=== PATIENT | male | born 1940 | race Caucasian/White ===

== ENCOUNTER 2017-01-27 19:27 | Emergency (ER) | payer MEDICARE, OTHER ==
[2017-01-27 19:43] VITALS: BP 165/68
[2017-01-27] MEDS ORDERED: Acetaminophen/oxyCODONE 325-5 MG Tab PO ONE (20:47)
--- NOTE | 2017-01-30 11:46 | ER ---
DATE SEEN: 01/27/2017 TIME SEEN: The patient was seen at 1950 hours. HISTORY OF PRESENT ILLNESS: The patient recently had surgery by Dr. Pete Antonio, a left total knee replacement. He comes in this evening with a 5- day postoperative tenderness, swelling, and increased warmth and fever of 100.6 and 10/10 pain in his left knee, total knee arthroplasty. Now, the pain is 7/10 to 8/10 in intensity. The pain is mildly uncomfortable. His is a nurse, who is very concerned about his status. PAST MEDICAL HISTORY: Significant for atrial fibrillation, now is sinus rhythm. Two CVAs, is on anticoagulants 7.5 mg, Saturday, Saturday, Saturday, Saturday and 10 mg yesterday 01/26/2017. Diabetes with peripheral neuropathy, early satiety, and retinal vascular changes in the eyes. He is an old smoker. Cholelithiasis, previous inguinal herniorrhaphy bilateral, previous cataract extraction, aortic murmur. 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 Currently on Lovenox, per his , 80 mg b.i.d. (that seems quite high), perhaps that is inappropriate. Blood pressure has been relatively stable. He has been on Coumadin since 1999. He was diagnosed with atrial fibrillation in 2014. He has had two strokes and it is thought perhaps he is still continuing the Coumadin because of these strokes. MEDICATIONS: 1. Warfarin. 2. Pepcid 40 mg daily. 3. Calcium carbonate. 4. Alphagan 0.1% drops one each b.i.d. 5. Wizrnczswl-Lauedbv-G. 6. Losartan potassium. 7. Efudex 5% cream. 8. Finasteride 5 mg daily. 9. Simvastatin 10 mg at bedtime. 10.Metformin 500 mg daily. 11.Amlodipine 5 mg daily. ALLERGIES: None. REVIEW OF SYSTEMS: The patient denies headache, neck stiffness, shortness of breath, cough, chest pain, irregular heartbeat, abdominal discomfort, nausea, vomiting, or diarrhea. He is not currently taking antibiotics. He denies paresthesias or numbness in the lower extremity, but notes he has moderate swelling in his left total knee and it is markedly increased compared to what it was yesterday. It is associated with marked new-onset redness entire left knee and increased warmth. PHYSICAL EXAMINATION: VITAL SIGNS: Blood pressure 165/68, heart rate 76, respirations 18, oxygen saturation 94% on room air, temperature is 36.7 degrees centigrade, normal. GENERAL: Alert, pleasant man, decreased hearing. His speaks a great deal for him because he has decreased hearing. She is very good - articulate as a nurse and is very knowledgeable. HEENT: PERRLA intact. Pharynx without abnormality. NECK: Supple without bruits in the neck. LUNGS: Clear to auscultation without rales, rhonchi, or wheezes. HEART: S1, S2. No murmur. No irregular rate and rhythm. ABDOMEN: Soft. No guarding. No abdominal discomfort. EXTREMITIES: Left lower extremity marked redness noted, increased warmth, marked swelling noted. His incision is clean. No linear angiitis. Moderate tenderness below the knee and above the knee. ASSESSMENT: 1. Rule out cellulitis infection. 2. I discussed the patient's status with the orthopedist classroom monitor, Dr. Keaton Antonio' colleague, and also the hospitalist, Dr. Fontanez. The patient will be transferred to [facility] by car with his for further evaluation and potential treatment of infection. At this point, there is low probability that he will require joint washout. /[id number] MEJIA/CHERRIE
== END 2017-01-27 20:45 | disposition home or self-care (01) ==
LOC: FB.ED 19:27
DX: Z47.1 Aftercare following joint replacement surgery (principal); E11.40 Type 2 diabetes mellitus with diabetic neuropathy, unspecified; I48.91 Unspecified atrial fibrillation; Z79.899 Other long term (current) drug therapy; Z86.73 Personal history of transient ischemic attack (TIA), and cerebral infarction without residual deficits
CPT/HCPCS: 99284; A9270; 99283

== ENCOUNTER 2021-05-19 16:38 | Emergency (ER) | payer MEDICARE, OTHER ==
--- NOTE | 2021-05-19 17:55 | EDM.PDOC ---
ED HPI GENERAL MEDICAL PROBLEM - General Time Seen by Provider: 05/19/21 17:20 Source of Information: Reports: Patient, Family - History of Present Illness INITIAL COMMENTS - FREE TEXT/NARRATIVE: c/o cough and fever and weak x 2d has dementia, lives with his who is his sole caregiver, she is with him driving his old tractor 2 wk ago to move snow, hit his right lower ribs on a gear handle and has pain "if you touch the right spot" cough with small amount of yellow sputum per has had COVID vax x 2, not had COVID denies pain now except for R rib he is weaker than usual, got out his walker for him, has not fallen did pass 3 kidney stones 2 days ago, had dx kidney stones going back to 2012, no dysuria, no abd pain, no n/v - Related Data Allergies Allergy/AdvReac Type Severity Reaction Status Date / Time No Known Allergies Allergy Verified 01/27/17 19:33 Home Meds: Home Meds Acetaminophen [Non-Aspirin Extra Strength] 1,000 mg PO Q6HR PRN 07/25/15 [History] Calcium Carbonate [Tums] 1,500 mg PO DAILY PRN 07/25/15 [History] Famotidine [Pepcid] 40 mg PO DAILY 07/25/15 [History] Finasteride [Proscar] 5 mg PO DAILY 07/25/15 [History] Flex Joint 1 oz PO DAILY 07/25/15 [History] Losartan Potassium [Cozaar] 100 mg PO DAILY 07/25/15 [History] Sennosides/Docusate Sodium [Senokot-S Tablet] 1 each PO BID 07/25/15 [History] Simvastatin [Zocor] 10 mg PO BEDTIME 07/25/15 [History] Warfarin [Coumadin] 5 mg PO TUTHSA 07/25/15 [History] amLODIPine [Norvasc] 5 mg PO DAILY 07/25/15 [History] fluorouraciL [Efudex 5% Cream] 40 gm TOP ASDIRECTED 07/25/15 [History] metFORMIN [Glucophage XR] 500 mg PO DAILY 07/25/15 [History] Brimonidine [Alphagan P 0.1% Ophth Soln] 1 drop EYEBOTH BID 07/26/15 [History] Warfarin Sodium [Coumadin] 7.5 mg PO SUMOWEFR 01/27/17 [History] Past Medical History HEENT History: Reports: Cataract, Glaucoma, Hard of Hearing, Impaired Vision, Sinusitis Cardiovascular History: Reports: Blood Clots/VTE/DVT, High Cholesterol, Hypertension, [place], SOB on Exertion, Syncope Other Cardiovascular History: STATES HEART VALVE PROBLEMS, ET VENTRICULAR DAMAGE. Respiratory History: Reports: Interstitial Lung Disease Other Respiratory History: STATES ASBESTOSIS Gastrointestinal History: Reports: Cholelithiasis, Hemorrhoids, Hiatal Hernia, Irritable Bowel Syndrome Genitourinary History: Reports: BPH, Diabetic Nephropathy, Renal Calculus SPARKER AND PATCHER History: Reports: None Musculoskeletal History: Reports: Back Pain, Chronic, Osteoarthritis, Other (See Below) Other Musculoskeletal History: TORN ROTATOR CUFF OF RIGHT ET LEFT. HAD SURGERY ON RIGHT. HAMMER TOE REPAIR OF LEFT 2ND TOE. CARPAL TUNNEL OF RIGHT. Neurological History: Reports: CVA, Vertigo Other Neuro History: CVA X2 Psychiatric History: Reports: None Endocrine/Metabolic History: Reports: Diabetes, Type II Other Endocrine/Metabolic History: DEVELOPED DIABETES IN 2011 Hematologic History: Reports: None Immunologic History: Reports: None Oncologic (Cancer) History: Reports: Malignant Melanoma Other Oncologic History: QUESTIONS SKIN DIAGNOSIS OF POSSIBLE MELANOMAN, TREATING WITH CREAMS CURRENTLY. DIAGNOSIS ACTINIC KERATOSIS ON HX. Other Dermatologic History: STATES HAS ITCHING FROM PAST INSULATION EXPOSURES. - Infectious Disease History Infectious Disease History: Reports: Chicken Pox, Measles, Mumps - Past Surgical History Head Surgeries/Procedures: Reports: None HEENT Surgical History: Reports: Cataract Surgery, Laser Surgery GI Surgical History: Reports: Cholecystectomy, Colonoscopy, EGD, Hernia, Inguinal, Hernia Repair/Other Musculoskeletal Surgical History: Reports: Carpal Tunnel, Shoulder Surgery Social & Family History - Caffeine Use Caffeine Use: Reports: None ED ROS GENERAL - Review of Systems Review Of Systems: See Below Constitutional: Reports: Fever, Weakness HEENT: Reports: No Symptoms Respiratory: Reports: Cough, Sputum. Denies: Shortness of Breath, Wheezing, Pleuritic Chest Pain Cardiovascular: Reports: No Symptoms Endocrine: Reports: No Symptoms GI/Abdominal: Reports: No Symptoms : Reports: No Symptoms Musculoskeletal: Reports: No Symptoms Skin: Reports: No Symptoms Neurological: Reports: No Symptoms Psychiatric: Reports: No Symptoms Hematologic/Lymphatic: Reports: No Symptoms Immunologic: Reports: No Symptoms ED EXAM, GENERAL - Physical Exam Exam: See Below Exam Limited By: No Limitations General Appearance: Alert, WD/WN, No Apparent Distress, Other (quite pleasant, good eye contact, did have a slight cough once, talks complete sentences, no dyspnea) Eye Exam: Bilateral Eye: EOMI, PERRL Ears: Hearing Loss Nose: Normal Inspection, Normal Mucosa, No Blood Throat/Mouth: Normal Inspection, Normal Lips, Normal Teeth, Normal Voice, No Airway Compromise Head: Atraumatic, Normocephalic Neck: Normal Inspection, Supple, Non-Tender, Full Range of Motion. No: Lymphadenopathy (R), Lymphadenopathy (L) Respiratory/Chest: No Respiratory Distress, Lungs Clear, Normal Breath Sounds, No Accessory Muscle Use, Chest Non-Tender, Other (good AE, no rales/wheezes) Cardiovascular: Regular Rate, Rhythm, No Edema, Other (2/6 MEHUL at LSB, quiet precordium) GI/Abdominal: Normal Bowel Sounds, Soft, Non-Tender, No Distention Back Exam: Normal Inspection, Full Range of Motion. No: CVA Tenderness (R), CVA Tenderness (L) Extremities: Normal Inspection, Non-Tender, No Pedal Edema Neurological: Alert, CN II-XII Intact, Normal Cognition, No Motor/Sensory Deficits Psychiatric: Normal Affect, Normal Mood Skin Exam: Warm, Dry, Intact, Normal Color, No Rash Lymphatic: No Adenopathy Course - Vital Signs Last Recorded V/S: Last Vital Signs Temp 38.2 C H 05/19/21 16:38 Pulse 72 05/19/21 16:38 Resp 18 05/19/21 16:38 BP 117/82 05/19/21 16:38 Pulse Ox 92 L 05/19/21 16:38 - Orders/Labs/Meds Orders: Active Orders 24 hr Category Date Time Status Chest 2V [CR] Stat Exams 05/19/21 17:49 Taken Isolation [COMM] Routine Oth 05/19/21 17:50 Ordered Labs: Laboratory Tests 05/19/21 05/19/21 05/19/21 Range/Units 18:00 18:00 18:00 WBC 5.1 (3.2-10.1) x10-3/uL RBC 3.97 (3.90-5.90) x10(6)uL Hgb 12.6 L (12.9-17.7) g/dL Hct 38.3 (38.3-50.1) % MCV 96.5 (80.8-98.7) fL MCH 31.7 (27.0-33.3) pg MCHC 32.9 (28.7-35.3) g/dL RDW 14.5 (12.4-15.0) % Plt Count 155 (117-477) x10(3)uL MPV 8.3 (6.7-11.0) fL Add Manual Diff Yes Neutrophils % (Manual) 61 (46-82) % Band Neutrophils % 1 (0-6) % Lymphocytes % (Manual) 19 (13-37) % Monocytes % (Manual) 19 H (4-12) % PT 17.1 H (9.0-11.1) sec INR 1.63 H (1.00-1.24) Sodium 135 (135-145) mmol/L Potassium 3.7 (3.5-5.3) mmol/L Chloride 99 L (100-110) mmol/L Carbon Dioxide 28 (21-32) mmol/L BUN 20 H (7-18) mg/dL Creatinine 1.1 (0.70-1.30) mg/dL Est Cr Clr Drug Dosing TNP Estimated GFR (MDRD) > 60 (>60) BUN/Creatinine Ratio 18.2 (9-20) Glucose 124 H (80-116) mg/dL Calcium 7.7 L (8.6-10.2) mg/dL Total Bilirubin 0.6 (0.1-1.3) mg/dL AST 25 (5-25) IU/L ALT 20 (12-36) U/L Alkaline Phosphatase 55 L (56-112) IU/L C-Reactive Protein (0.5-0.9) mg/dL Total Protein 6.5 (6.0-8.0) g/dL Albumin 2.8 L (3.2-4.6) g/dL Globulin 3.7 g/dL Albumin/Globulin Ratio 0.8 Urine Color (YELLOW) Urine Appearance (CLEAR) Urine pH (5.0-6.5) Ur Specific [place] (1.010-1.025) Urine Protein (NEGATIVE) mg/dL Urine Glucose (UA) (NORMAL) mg/dL Urine Ketones (NEGATIVE) mg/dL Urine Occult Blood (NEGATIVE) Urine Nitrite (NEGATIVE) Urine Bilirubin (NEGATIVE) Urine Urobilinogen (NEGATIVE) mg/dL Ur Leukocyte Esterase (NEGATIVE) Urine RBC (0-5) Urine WBC (0-5) Ur Squamous Epith Cells (NS,R,O) Amorphous Sediment Urine Bacteria (NS) SARS-CoV-2 RNA (FAUZIA) (NEGATIVE) 05/19/21 05/19/21 05/19/21 Range/Units 18:00 18:24 19:30 WBC (3.2-10.1) x10-3/uL RBC (3.90-5.90) x10(6)uL Hgb (12.9-17.7) g/dL Hct (38.3-50.1) % MCV (80.8-98.7) fL MCH (27.0-33.3) pg MCHC (28.7-35.3) g/dL RDW (12.4-15.0) % Plt Count (117-477) x10(3)uL MPV (6.7-11.0) fL Add Manual Diff Neutrophils % (Manual) (46-82) % Band Neutrophils % (0-6) % Lymphocytes % (Manual) (13-37) % Monocytes % (Manual) (4-12) % PT (9.0-11.1) sec INR (1.00-1.24) Sodium (135-145) mmol/L Potassium (3.5-5.3) mmol/L Chloride (100-110) mmol/L Carbon Dioxide (21-32) mmol/L BUN (7-18) mg/dL Creatinine (0.70-1.30) mg/dL Est Cr Clr Drug Dosing Estimated GFR (MDRD) (>60) BUN/Creatinine Ratio (9-20) Glucose (80-116) mg/dL Calcium (8.6-10.2) mg/dL Total Bilirubin (0.1-1.3) mg/dL AST (5-25) IU/L ALT (12-36) U/L Alkaline Phosphatase (56-112) IU/L C-Reactive Protein 5.8 H* (0.5-0.9) mg/dL Total Protein (6.0-8.0) g/dL Albumin (3.2-4.6) g/dL Globulin g/dL Albumin/Globulin Ratio Urine Color Yellow (YELLOW) Urine Appearance Clear (CLEAR) Urine pH 5.0 (5.0-6.5) Ur Specific [place] 1.020 (1.010-1.025) Urine Protein Negative (NEGATIVE) mg/dL Urine Glucose (UA) 250 H (NORMAL) mg/dL Urine Ketones 15 H (NEGATIVE) mg/dL Urine Occult Blood Negative (NEGATIVE) Urine Nitrite Negative (NEGATIVE) Urine Bilirubin Negative (NEGATIVE) Urine Urobilinogen Normal (NEGATIVE) mg/dL Ur Leukocyte Esterase Negative (NEGATIVE) Urine RBC 0-5 (0-5) Urine WBC 0-5 (0-5) Ur Squamous Epith Cells Occasional (NS,R,O) Amorphous Sediment Few Urine Bacteria Rare H (NS) SARS-CoV-2 RNA (FAUZIA) Positive H (NEGATIVE) - Re-Assessments/Exams Free Text/Narrative Re-Assessment/Exam: 05/19/21 21:12 PO 92% in [place] walking is a 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 antibody on weekend as well, will plan on giving here in 3 days on Saturday Departure - Departure Time of Disposition: 21:04 Disposition: Home, Self-Care 01 Condition: Good Clinical Impression: Pneumonia due to COVID-19 virus - Discharge Information *PRESCRIPTION DRUG MONITORING PROGRAM REVIEWED*: Not Applicable *COPY OF PRESCRIPTION DRUG MONITORING REPORT IN PATIENT CHICHI: Not Applicable Instructions: COVID-19: What to Do If You Are Sick- CDC (08/24/2020) Referrals: PCP,None [Primary Care Provider] - Additional Instructions: For pain and inflammation and fever, take acetaminophen 500 mg 2 tabs 4 times a day for one week, longer if needed. Check oxygen at home 2 times a day. If the oxygen is running 88% less, you will qualify for home oxygen and can call your PCP or [facility] directly (or another home oxygen service) to set up home oxygen. Increase fluids. Drink fluids without caffeine or alcohol every hour while awake. Rest. Call or return to Emergency Department any time if you are feeling worse. The hospital pharmacy will call you on Saturday regarding a time to come in for the monoclonal antibody. Call the Emergency Department if you have need received instructions by mid to late morning. Notify your physician in 3 days on Saturday. Sepsis Event Note (ED) - Focused Exam Vital Signs: Vital Signs Temp Pulse Resp BP Pulse Ox 05/19/21 16:38 38.2 C H 72 18 117/82 92 L - My Orders Last 24 Hours: My Active Orders 05/19/21 17:49 Chest 2V [CR] Stat 05/19/21 17:50 Isolation [COMM] Routine - Assessment/Plan Last 24 Hours: My Active Orders 05/19/21 17:49 Chest 2V [CR] Stat 05/19/21 17:50 Isolation [COMM] Routine
[2021-05-19 21:55] VITALS: BP 132/74; PULSE 85
--- NOTE | 2021-05-22 14:26 | CR ---
INDICATION: Cough, fever. CHEST: Two PA views and a lateral view of the chest, 05/19/21, were compared with 04/05/12 and 04/04/12. Extensive calcified pleural plaques were noted compatible with asbestosis, as previously. They appear to be more easily visualized than on the previous examinations and may be slightly progressive. However, no definite associated mass lesion was identified, although CT of the chest would be more efficacious to evaluate for mesothelioma. The heart did not appear grossly enlarged. Degenerative changes are noted in the spine. The aorta is tortuous with calcification in the arch. Findings compatible with COPD are also noted. IMPRESSION: 1. Extensive asbestosis. 2. No definite acute process. 3. ASD aorta. 4. COPD. 5. DJD spine. MTDD
== END 2021-05-19 21:30 | disposition home or self-care (01) ==
LOC: FB.ED 16:38
DX: U07.1 COVID-19 (principal); J12.82 Pneumonia due to coronavirus disease 2019; E78.00 Pure hypercholesterolemia, unspecified; I10 Essential (primary) hypertension; I25.2 Old myocardial infarction; N40.0 Benign prostatic hyperplasia without lower urinary tract symptoms; E11.9 Type 2 diabetes mellitus without complications; Z86.73 Personal history of transient ischemic attack (TIA), and cerebral infarction without residual deficits; Z79.84 Long term (current) use of oral hypoglycemic drugs; Z79.899 Other long term (current) drug therapy
CPT/HCPCS: 36415; 71046; 80053; 81001; 85025; 85610; 86140; 87804; 99284; U0002

== ENCOUNTER 2021-05-20 16:42 | Emergency (ER) | payer MEDICARE, OTHER ==
[2021-05-20 16:48] VITALS: BP 115/64; PULSE 69
--- NOTE | 2021-05-20 16:54 | EDM.PDOC ---
ED HPI GENERAL MEDICAL PROBLEM - General Stated Complaint: LOW O2 Time Seen by Provider: 05/20/21 16:52 Source of Information: Reports: Family (Patient's ) History Limitations: Reports: Other (Patient does have dementia but he is oriented to and place.) - History of Present Illness INITIAL COMMENTS - FREE TEXT/NARRATIVE: 81-year-old male who presents to the emergency room via private vehicle by his from home secondary to reported low O2 saturations. The patient was seen in this emergency department yesterday and was diagnosed with Covid and was actually filled have some Covid pneumonia. He had normal vital signs including a normal O2 saturation. He had had symptoms for 3 days prior with nasal congestion and cough. The patient was set up for outpatient monoclonal antibody therapy for Saturday of this coming week. And the has been taking care of him at home. She does have home oxygen monitor and has been monitoring his oxygen saturations. This noted that his oxygen was 44% and then 60%. He really did not seem to be having any trouble breathing she was concerned about this and could not rectified and rodding to the emergency department for evaluation. Once here, his O2 saturations have been 93-96% on room air and he has been in no apparent distress. reports he has had no vomiting but he has had some loose stools. also reports that he has been eating and drinking fairly normally and he has been able to walk and get around the house with minimal assistance from her. The does report that he looks the same as he did at home but his O2 saturations are 93-96% on room air now. There are no other associated signs or symptoms. There are no other modifying factors. Onset: Today Duration: Resolved Prior to Arrival (Questionable resolved or were normal at home.) Location: Reports: Other (Not applicable) Quality: Reports: Other (Not applicable) Context: Reports: Other (As above) Associated Symptoms: Reports: No Other Symptoms (Except as above) Treatments BOX CUTTER: Reports: Other (see below) (Nothing.) - Related Data Allergies Allergy/AdvReac Type Severity Reaction Status Date / Time No Known Allergies Allergy Verified 05/20/21 17:14 Home Meds: Home Meds Acetaminophen [Non-Aspirin Extra Strength] 1,000 mg PO Q6HR PRN 07/25/15 [History] Calcium Carbonate [Tums] 1,500 mg PO DAILY PRN 07/25/15 [History] Famotidine [Pepcid] 40 mg PO DAILY 07/25/15 [History] Finasteride [Proscar] 5 mg PO DAILY 07/25/15 [History] Flex Joint 1 oz PO DAILY 07/25/15 [History] Losartan Potassium [Cozaar] 100 mg PO DAILY 07/25/15 [History] Sennosides/Docusate Sodium [Senokot-S Tablet] 1 each PO BID 07/25/15 [History] Simvastatin [Zocor] 10 mg PO BEDTIME 07/25/15 [History] Warfarin [Coumadin] 5 mg PO TUTHSA 07/25/15 [History] amLODIPine [Norvasc] 5 mg PO DAILY 07/25/15 [History] fluorouraciL [Efudex 5% Cream] 40 gm TOP ASDIRECTED 07/25/15 [History] metFORMIN [Glucophage XR] 500 mg PO DAILY 07/25/15 [History] Brimonidine [Alphagan P 0.1% Ophth Soln] 1 drop EYEBOTH BID 07/26/15 [History] Warfarin Sodium [Coumadin] 7.5 mg PO SUMOWEFR 01/27/17 [History] Past Medical History HEENT History: Reports: Cataract, Glaucoma, Hard of Hearing, Impaired Vision, Sinusitis Cardiovascular History: Reports: Blood Clots/VTE/DVT, High Cholesterol, Hypertension, [place], SOB on Exertion, Syncope Other Cardiovascular History: STATES HEART VALVE PROBLEMS, ET VENTRICULAR DAMAGE. Respiratory History: Reports: Interstitial Lung Disease Other Respiratory History: STATES ASBESTOSIS Gastrointestinal History: Reports: Cholelithiasis, Hemorrhoids, Hiatal Hernia, Irritable Bowel Syndrome Genitourinary History: Reports: BPH, Diabetic Nephropathy, Renal Calculus Musculoskeletal History: Reports: Back Pain, Chronic, Osteoarthritis, Other (See Below) Other Musculoskeletal History: TORN ROTATOR CUFF OF RIGHT ET LEFT. HAD SURGERY ON RIGHT. HAMMER TOE REPAIR OF LEFT 2ND TOE. CARPAL TUNNEL OF RIGHT. Neurological History: Reports: CVA, Vertigo Other Neuro History: CVA X2 Endocrine/Metabolic History: Reports: Diabetes, Type II Other Endocrine/Metabolic History: DEVELOPED DIABETES IN 2011 Oncologic (Cancer) History: Reports: Malignant Melanoma Other Oncologic History: QUESTIONS SKIN DIAGNOSIS OF POSSIBLE MELANOMAN, TREATING WITH CREAMS CURRENTLY. DIAGNOSIS ACTINIC KERATOSIS ON HX. - Infectious Disease History Infectious Disease History: Reports: Chicken Pox, Measles, Mumps - Past Surgical History HEENT Surgical History: Reports: Cataract Surgery, Laser Surgery GI Surgical History: Reports: Cholecystectomy, Colonoscopy, EGD, Hernia, Inguinal, Hernia Repair/Other Musculoskeletal Surgical History: Reports: Carpal Tunnel, Shoulder Surgery Social & Family History - Tobacco Use Tobacco Use Status *Q: Unknown Ever Used Tobacco (Nonsmoker) - Caffeine Use Caffeine Use: Reports: Coffee - Alcohol Use Alcohol Use History: No - Living Situation & Occupation Living situation: Reports: , with Spouse Occupation: Retired ED ROS GENERAL - Review of Systems Review Of Systems: Unable To Obtain Reason Not Obtained: Secondary to his dementia, he cannot provide this to me. ED EXAM, GENERAL - Physical Exam Exam: See Below Exam Limited By: Uncooperative General Appearance: Alert, No Apparent Distress, Other (Is calm and cooperative. There is no respiratory distress.) Eye Exam: Bilateral Eye: Normal Inspection (Sclera are anicteric) Ears: Normal External Exam, Hearing Grossly Normal Ear Exam: Bilateral Ear: Auricle Normal Nose: Normal Inspection, Normal Mucosa, No Blood Throat/Mouth: Normal Oropharynx, Normal Voice, No Airway Compromise, Other (Moist mucous membranes) Head: Atraumatic, Normocephalic Neck: Normal Inspection, Supple, Non-Tender, Full Range of Motion Respiratory/Chest: No Respiratory Distress, Lungs Clear, Normal Breath Sounds, No Accessory Muscle Use. No: Rales, Rhonchi, Wheezing Cardiovascular: Normal Peripheral Pulses, Regular Rate, Rhythm Peripheral Pulses: 2+: Radial (L), Radial (R) GI/Abdominal: Normal Bowel Sounds, Soft, Non-Tender, No Distention, No Mass Back Exam: Normal Inspection Extremities: Normal Inspection, Normal Range of Motion, Non-Tender, No Pedal Edema, Normal Capillary Refill Neurological: Alert, CN II-XII Intact, No Motor/Sensory Deficits, Disoriented (This is his baseline.) Skin Exam: Warm, Dry, Intact, Normal Color, No Rash Course - Vital Signs Last Recorded V/S: Last Vital Signs Temp 37.9 C 05/20/21 16:42 Pulse 69 05/20/21 16:42 Resp 18 05/20/21 16:42 BP 115/64 05/20/21 16:42 Pulse Ox 94 L 05/20/21 16:42 - Re-Assessments/Exams Free Text/Narrative Re-Assessment/Exam: 05/20/21 17:15: Elderly male with covid type symptoms for the past 3 days and tested positive for Covid in this emergency department yesterday, 05/19/2021. Labs and his chest x-ray were reassuring. He had normal O2 saturation and normal hemodynamics. The reports that he has been eating and drinking normally today and he has not appeared to be in any respiratory distress. In this emergency department, his O2 saturations have been 93-96% on room air. The patient is tentatively set up for monoclonal antibody therapy for Covid on 05/22/2021. At this point, she does not want anything else done. She feels comfortable taking him back home. Precautions and reasons for return to the emergency department were discussed with the patient's while the patient was in the emergency department and were detailed in the patient's discharge instructions. Departure - Departure Time of Disposition: 17:25 Disposition: Home, Self-Care 01 Condition: Fair (Stable) Clinical Impression: COVID-19 virus infection, Feared condition not demonstrated - Discharge Information Instructions: 10 Things You Can Do to Manage Your COVID-19 Symptoms at Home - [facility] (12/23/2020) Referrals: PCP,None [Primary Care Provider] - Forms: ED Department Discharge Additional Instructions: Your 's oxygen saturation was consistently 93-96% on room air while he was in the emergency department. He had normal blood pressure and a normal pulse. Did not appear to be in any distress and there was no evidence of dehydration. You should continue to he drinks plenty of fluids. You should also continue to give him Tylenol as needed for fever. Continue to monitor his oxygen levels at home. Keep the appointment for the Covid 19 monoclonal antibody therapy. Back to the emergency department for oxygen levels that are consistently below 90%, trouble breathing, severe weakness, vomiting or any other concerning signs or symptoms. Sepsis Event Note (ED) - Focused Exam Vital Signs: Vital Signs Temp Pulse Resp BP Pulse Ox 05/20/21 16:42 37.9 C 69 18 115/64 94 L
== END 2021-05-20 18:05 | disposition home or self-care (01) ==
LOC: FB.ED 16:42
DX: U07.1 COVID-19 (principal); F40.9 Phobic anxiety disorder, unspecified; E78.00 Pure hypercholesterolemia, unspecified; I10 Essential (primary) hypertension; I25.2 Old myocardial infarction; E11.40 Type 2 diabetes mellitus with diabetic neuropathy, unspecified; M19.90 Unspecified osteoarthritis, unspecified site; N40.0 Benign prostatic hyperplasia without lower urinary tract symptoms; Z86.73 Personal history of transient ischemic attack (TIA), and cerebral infarction without residual deficits; Z79.01 Long term (current) use of anticoagulants; Z79.899 Other long term (current) drug therapy
CPT/HCPCS: 99283